=== PATIENT | female | born 1960 | race Caucasian/White ===

== ENCOUNTER 2017-02-23 17:56 | Inpatient (IN) | payer SELFPAY ==
[~2017-02-23] VITALS: Ht 157.4 cm; Wt 59.6 kg
--- NOTE | ~2017-02-23 | CON ---
[place], [place] REPORT OF CONSULTATION NAME: CRISTINE ARREAGA UNIT #: [id number] ROOM: 404 DOCTOR: SUKHI HEAD MD BIRTHDATE: [birth year] DOS: 02/25/2017 PSYCHIATRIC CONSULTATION CHIEF COMPLAINT: "I have been so depressed and anxious." HISTORY OF PRESENT ILLNESS: This is a 56-year-old white female who was admitted due to persistent left-sided chest pain. Workup to date has been negative. The patient openly endorses increased depression and panic attacks. She states that the depression has been ongoing for years and reports that she has had multiple losses in her family that have helped precipitate the ongoing depression. With the depression, she endorses poor sleep with difficulty falling asleep, sleep continuity disturbance, communications designer awakening, anergia, anhedonia, hopeless, helpless feelings, crying spells and inability to cope. She also reports frequent panic attacks that include chest pain, shortness of breath, diaphoresis and a sense of impending doom. She reports having been on Ativan in the past, but has never been on an antidepressant. She has never gone for counseling. PAST MEDICAL HISTORY: Remarkable for GERD and a history of nicotine abuse. MENTAL STATUS: The patient is alert and oriented. Mood is depressed with anxious overtones. She endorses multiple neurovegetative symptoms as well as symptoms of autonomic nervous system dysregulation. There is no khadijah or psychosis noted and memory is intact. DIAGNOSES: Major depression, recurrent and panic disorder. PLAN: I will start her on Ativan 1 mg twice daily as well as Cymbalta 30 mg at bedtime. I would suggest that she follow up in the office for further medication management. I did suggest to her that she start counseling. She is somewhat leery of this, but would reinforce the need for ongoing counseling to help her deal with her multiple losses and try to improve her coping skills. SUKHI HEAD MD CM:CONSTR:REPORT OF CONSULTATION 0954 02/25/17 1017 interface
--- NOTE | ~2017-02-23 | CON ---
[place], [place] REPORT OF CONSULTATION NAME: CRISTINE ARREAGA UNIT #: [id number] ROOM: 404 DOCTOR: MICAELA DENNIS MD BIRTHDATE: [birth year] DOS: 02/24/2017 REASON FOR CONSULTATION: Chest pain. HISTORY OF PRESENT ILLNESS: The patient is a 56-year-old woman who has no previously documented history of heart disease. She does have a history of lung disease and continues to smoke. She denies any history of stroke, high blood pressure, diabetes. She states that for the last 6 days, she has had an aching sensation in her left chest. The pain does not radiate. It is constant and nothing much seems to make it better or worse. She has not noticed any specific relation to exercise or meals. It seemed to be getting worse and she was very anxious about it, so she came to the hospital for assessment. The patient does admit that her left upper extremity does feel numb and tingly and she has had transient visual loss in her left eye within the last few days. She does have occasional palpitations. The patient does suffer from anxiety and does admit that she does have gastroesophageal reflux. PAST MEDICAL HISTORY: Includes 1. Anxiety. 2. Gastroesophageal reflux disease. 3. Tubal ligation. 4. snf and ongoing cigarette abuse. MEDICATIONS: Prior to admission Naproxen 500 mg b.i.d. p.r.n., Chlorzoxazone (Parafon Forte) 500 mg t.i.d. p.r.n. ALLERGIES: The patient lists an allergy to MORPHINE, which caused vomiting. FAMILY HISTORY: Negative for early coronary artery disease. She states that several family members have had cancer including her father who between age 50 and 60. REVIEW OF SYSTEMS: The patient denies fevers, chills, sweats or recent weight change. She did have loss of vision in her left eye transiently a few days ago. She denies nausea or vomiting. She denies focal weakness. She denies hemoptysis or hematemesis. She has had some mild dyspnea. She has noticed some tingling in her fingers, especially on the left hand. She denies change in bowel or bladder habits and denies blood in her stools or urine. She denies any skin rashes. She denies polydipsia, polyuria or heat intolerance. She denies any swelling in her legs or any history of blood clots. The remainder of the review of systems is negative except as noted above. SOCIAL HISTORY: The patient is . She smokes cigarettes, but denies any use of illicit drugs or alcohol. PHYSICAL EXAMINATION: GENERAL: The patient is a slender white female who is awake, alert and [place], [place] REPORT OF CONSULTATION NAME: CRISTINE ARREAGA UNIT #: [id number] ROOM: [facility] DOCTOR: MICAELA DENNIS MD BIRTHDATE: [birth year] oriented. VITAL SIGNS: Pulse is 68 and regular, blood pressure is 102/68. She is afebrile. She weighs 59.6 kg and has a body mass index of 24. HEENT: Normocephalic, atraumatic. Extraocular muscles are intact. Sclerae are clear. Pupils are equal, round and reactive to light. The oral mucosa is moist. Tongue is midline. NECK: Supple. She has no jugular distention. Carotids are full and I heard no bruits. She had no neck or supraclavicular masses and no thyromegaly. LUNGS: Respirations are unlabored. Her chest is clear to auscultation and percussion. She has decreased breath sounds at the bases, but no wheezes or rales. She has no presacral edema. I could not reproduce her chest pain by palpation of her anterior chest wall. CARDIOVASCULAR: Her heart has a regular rhythm. She has a very soft S4 gallop, but no S3 or murmur. The PMI is not displaced. There is no precordial heave, lift or thrill. ABDOMEN: Soft and normally active without masses, organomegaly, bruits or tenderness. Again, I could not reproduce her pain by palpation of her abdomen. EXTREMITIES: Showed no clubbing, cyanosis or edema. Peripheral pulses are palpable in the feet. There are no palpable cords or Homans sign. LABORATORY DATA: I reviewed her electrocardiogram. It shows sinus rhythm with low precordial voltage. No acute ST or T-wave changes are seen. There is evidence for left atrial enlargement. Hemoglobin is 11.9, hematocrit 35.6. There are 10,000 white cells and 322,000 platelets. Sodium is 140, potassium 3.8, BUN 6, creatinine 0.64. Troponin was normal times 3. Total cholesterol is mildly elevated at 216, LDL is 141, HDL is 47, triglycerides are 140. TSH is normal at 1.95. IMPRESSION: 1. Atypical chest pain. 2. No evidence for acute myocardial infarction. 3. Long-term and ongoing cigarette abuse. PLAN: Thus far, the patient shows no objective findings to suggest an acute coronary syndrome. In order to evaluate her further, we will proceed with an exercise myocardial perfusion study. Further recommendations will depend upon the results of the test. We thank the hospitalist physicians for asking our advice regarding her care. [place], [place] REPORT OF CONSULTATION NAME: CRISTINE ARREAGA UNIT #: [id number] ROOM: 404 DOCTOR: MICAELA DENNIS MD BIRTHDATE: [birth year] MICAELA DENNIS MD CM:CONSTR:REPORT OF CONSULTATION 0829 02/24/17 1037 interface
[~2017-02-23 17:56] MED LIST: 'PARAFON FORTE500 M1 PO; AMOXICOT500 MG PO; CATAFLAM50 MG PO; CLINDAMYCIN HC300 MG PO; DIAZEPAM2 MG PO; HYDROCODONE BIT1 T11 PO; K-Dur 20MEQ20 MEQ PO; NAPROSYN500 MG PO; NEXIUM40 MG PO; VICO75300 PO; VICODIN 5/500 505 MG PO
[2017-02-23 18:05] VITALS: BP 140/82
[2017-02-23 18:19] LABS: BASO % 0.4 % (0.0-1.0); EOS # 0.2 10*3/uL (0.0-0.4); EOS % 1.4 % (1.0-4.0); HEMATOCRIT 38.5 % (37.0-47.0); HEMOGLOBIN 13.2 g/dl (12.0-16.0); LYMPH # 4.8 10*3/uL (1.3-4.4); LYMPH % 45.4 % (27.0-41.0); MEAN CELL VOLUME 88.7 fl (81.0-99.0); MEAN CORPUSCULAR HGB 30.4 pg (27.0-31.0); MEAN CORPUSCULAR HGB CONC 34.3 g/dl (33.0-37.0); MEAN PLATELET VOLUME 9.6 fl (9.6-12.3); MONO # 0.6 10*3/uL (0.1-1.0); MONO % 5.8 % (3.0-9.0); NEUT % 46.7 % (47.0-73.0); PLATELET COUNT AUTOMATED 348 10*3/uL (130-400); RED BLOOD COUNT 4.34 10*6/uL (4.10-5.10); RED CELL DISTRI WIDTH 12.8 % (0-14.5); WHITE BLOOD COUNT 10.7 10*3/uL (4.8-10.8)
[2017-02-23 18:28] LABS: ACT PARTIAL THROMBO TIME 23.8 SECONDS (20.8-31.5)
[2017-02-23 18:36] LABS: ALKALINE PHOSPHATASE 118 U/L (45-117); BUN 7 mg/dl (7-24); CHLORIDE 103 mmol/L (98-107); CREATININE 1.04 mg/dL (0.55-1.02); POTASSIUM 3.3 mmol/L (3.5-5.1); SGOT/AST 8 IU/L (3-35); SGPT/ALT 14 U/L (12-78); SODIUM 137 mmol/L (136-145); TOTAL PROTEIN 7.9 gm/dL (6.4-8.2)
[2017-02-23 18:41] LABS: TROPONIN I < 0.015 ng/ml (<0.045)
--- NOTE | 2017-02-23 18:45 | NUR ---
BED ASSIGNED 404/2. PER GOLF COURSE EQUIPMENT OPERATOR, REPORT IS NOT TO BE CALLED UNTIL AFTER SHIFT REPORT.
[2017-02-23 19:18] VITALS: BP 134/86
[2017-02-23 20:00] VITALS: BP 114/56; BP 153/82; BP 154/82; BP 91/48
--- NOTE | 2017-02-23 20:58 | NUR ---
A 56, admitted to , under the services of BEHZAD Carney DO with a diagnosis of CARDIAC CHEST PAIN. Chief complaint is CHEST PAIN. Patient arrived via bed from ER. Monitor applied. Initial assessment completed. Vital signs taken and recorded. BEHZAD CARNEY DO notified of admission to the unit. Orders received. See assessment for past medical history, medications and allergies. Patient and/or family oriented to unit. [address] visitation policy reviewed. Clothing/patient valuable form completed. GENE FIGUEROA
--- NOTE | 2017-02-23 22:20 | NUR ---
PT C/O ANXIETY. CALLED , SPOKE WITH DR. Alana BILLINGS. SHE SAID SHE WOULD PUT AN ORDER IN.
--- NOTE | 2017-02-23 22:40 | NUR ---
ADMINISTERED ATIVAN ORDERED FOR ANXIETY.
[2017-02-24] VITALS: BP 120/73
--- NOTE | 2017-02-24 02:00 | NUR ---
SLEEPING. NO DISTRESS NOTED. CALL LIGHT IN REACH. WILL CONTINUE TO MONITOR.
--- NOTE | 2017-02-24 05:15 | NUR ---
PT C/O PAIN. PRN TYLENOL ORDERED, PER DR BILLINGS PT MAY HAVE TYLENOL WITH SIPS OF WATER.
--- NOTE | 2017-02-24 06:08 | NUR ---
PT RECEIVED TYLENOL FOR MILD CHEST PAIN. RATED 4/10.
--- NOTE | 2017-02-24 06:15 | NUR ---
PT C/O ANXIETY. HAD ONE TIME DOSE OF ATIVAN LAST NIGHT. CALLED AND SPOKE TO DR BILLINGS REGARDING NO ORDERS. SHE STATES SHE JESSICA SPEAK TO DR BENITO AND ADDRESS PT ANXIETY AND POSSIBLE PSYCH CONSULT.
[2017-02-24 06:22] LABS: HEMATOCRIT 35.6 % (37.0-47.0); HEMOGLOBIN 11.9 g/dl (12.0-16.0); MEAN CELL VOLUME 88.6 fl (81.0-99.0); MEAN CORPUSCULAR HGB 29.6 pg (27.0-31.0); MEAN CORPUSCULAR HGB CONC 33.4 g/dl (33.0-37.0); MEAN PLATELET VOLUME 10.3 fl (9.6-12.3); PLATELET COUNT AUTOMATED 322 10*3/uL (130-400); RED BLOOD COUNT 4.02 10*6/uL (4.10-5.10); RED CELL DISTRI WIDTH 12.8 % (0-14.5)
[2017-02-24 06:42] LABS: ALBUMIN 3.5 gm/dl (3.1-4.5); BUN 6 mg/dl (7-24); CHLORIDE 109 mmol/L (98-107); CHOLESTEROL 216 mg/dL (<200); CREATININE 0.64 mg/dL (0.55-1.02); PHOSPHOROUS 3.1 mg/dL (2.5-4.9); POTASSIUM 3.8 mmol/L (3.5-5.1); SGOT/AST 8 IU/L (3-35); SGPT/ALT 16 U/L (12-78); SODIUM 140 mmol/L (136-145)
[2017-02-24 06:50] LABS: ALKALINE PHOSPHATASE 94 U/L (45-117); FREE T4 1.12 ng/dl (0.76-1.46); HDL CHOLESTEROL 47 mg/dl (40-60); LDL CHOLESTEROL 141 mg/dL (9-159); TOTAL PROTEIN 6.6 gm/dL (6.4-8.2); TRIGLYCERIDES 140 mg/dl (<150); VLDL CHOLESTEROL 28 mg/dL (6-40)
[2017-02-24 06:54] LABS: ACT PARTIAL THROMBO TIME 24.4 SECONDS (20.8-31.5)
--- NOTE | 2017-02-24 06:56 | NUR ---
PT RECEIVED ATIVAN FOR ANXIETY.
[2017-02-24 07:06] LABS: PLATELET SUFFICIENCY NORMAL (NORMAL); TOTAL CELLS COUNTED 100 #CELLS
--- NOTE | 2017-02-24 07:37 | NUR ---
DR DENNIS RETURNED PHONE CALL ABOUT CONSULT. SAID TO PROCEED WITH STRESS TEST THIS MORNING ORDERED.
[2017-02-24 08:00] VITALS: BP 102/68
--- NOTE | 2017-02-24 08:00 | NUR ---
PATIENT IS RESTING IN BED. PATIENT DENIES ANY PAIN OR DISCOMFORT THIS MORNING. PATIENT WAS NPO SINCE MIDNIGHT FOR A STRESS TEST. PATIENT DENIES ANY EPISODES OF DIZZINESS AND WAS ABLE TO SLEEP THROUGHOUT THE NIGHT. PATIENT HAS A STUDENT NURSE FOR THIS MORNING THAT WILL BE DOING MEDICATIONS AND CHARTING. WILL CONTINUE TO MONITOR PATIENT. CALL LIGHT IS WITHIN REACH.
--- NOTE | 2017-02-24 08:10 | NUR ---
PT ESCORTED OFF THE FLOOR FOR STRESS TEST.
--- NOTE | 2017-02-24 08:15 | NUR ---
PATIENT IS OFF THE FLOOR FOR A STRESS TEST.
--- NOTE | 2017-02-24 09:00 | NUR ---
Oyster Washer in to talk to patient. Patient states lives at home with . There are few steps in the home. Physician: none at present [facility]acy: [facility] [place] [facility]: none Patient's level of ADLs: INDEPENDENT Patient has working utilities: all working DME: none Follow-up physician's appointment after d/c: will be made by hospitalist nurse director upon discharge Does patient want to access PORTAL?: no Discharge plan discussed with patient, patient lives at home with hsuband is independent in adls and ambulation, patient was having testing done, and answered the questions. he also stated that patient didn't have any insurance, educated him on someone from [employer] will be sending them a paper to fill out for help with the hospital stay. he also stated that they may need help with paying for medications, educated them that house pharmacy was able to supply patient medication. no other needs at this time. CHARLEEN RECINOS
--- NOTE | 2017-02-24 09:15 | NUR ---
DR. DENNIS EXAMINED PATIENT ON THE FLOOR AND SWITCHED STRESS TEST TO EXERCISE CARDIOLITE. PT HAD RECEIVED ATIVAN EARLIER THIS AM SO SWITCHED BACK TO LEXISCAN. RESTING EKG NSR WITH A RESTING HR OF 69 WITH BP OF 112/70. LUNGS CLEAR WITH SPO2 OF 96% ON ROOM AIR. PT COMPLETED A 1:00 LEXISCAN PROTOCOL RECEIVING LEXISCAN 0.4 MG IV OVER 10 SECONDS. HAD NO CHEST PAIN OR ANY EKG CHANGES. DID C/O WARM, "TENSE AND WORN OUT" THAT SUBSIDED IN RECOVERY. HAD A PEAK HR OF 116 WITH BP OF 102/68. LAST RECOVERY HR OF 88 WITH BP OF 100/64. AWAITING SCANNING IN STABLE CONDITION.
--- NOTE | 2017-02-24 11:05 | NUR ---
SPOKE WITH DR. VALERO REGARDING PT BACK FROM STRESS TEST HE WILL ORDER A DIET.
[2017-02-24 12:00] VITALS: BP 110/68
--- NOTE | 2017-02-24 12:30 | NUR ---
PATIENT IS RESTING IN BED WITH FAMILY AT THE BEDSIDE. PATIENT REPORTS FEELING A LOSS OF APPETITIE, BUT DENIES ANY N/V/D. PATIENT HASN'T HAD ANY EPISODES OF CHEST PAIN THROUGHOUT THE DAY. PATIENT IS MONITORED. HOB ELEVATED. SKIN IS W/P/D. VITALS HAVE BEEN WNL. SEE SHIFT ASSESSMENT. CALL LIGHT IS WITHIN REACH.
--- NOTE | 2017-02-24 15:55 | NUR ---
PATIENT GIVEN IV ZOFRAN PER PT REQUEST FOR NAUSEA, BUT NO EPISODES OF EMESIS. WILL CONTINUE TO MONITOR AND REASSESS.
[2017-02-24 16:00] VITALS: BP 117/76
--- NOTE | 2017-02-24 16:55 | NUR ---
PATIENT VERBALIZES NO LONGER HAVING NAUSEA AND FEELING A RELIEF OF SYMPTOMS. PATIENT IS EATING DINNER AND TOLERATING IT WELL.
--- NOTE | 2017-02-24 18:28 | NUR ---
PATIENT IS RESTING COMFORTABLY IN BED. PATIENT HAS BEEN PASSING NEURO CHECKS WITHOUT ANY ISSUES. PATIENT VERBALIZES FEELING TIRED, BUT HAS BEEN FEELING BETTER TODAY AND HASN'T HAD ANYMORE EPISODES OF CHEST PAIN THROUGHOUT THE SHIFT. PATIENT DENIES ANY N/V/D AT THIS TIME. CALL LIGHT SYSTEM REINFORCED. SEE SHIFT ASSESSMENT.
[2017-02-24 20:00] VITALS: BP 144/63
--- NOTE | 2017-02-24 20:30 | NUR ---
DR BILLINGS UP ON FLOOR. SPOKE TO HER ABOUT PT C/O ANXIETY. ORDER RECEIVED
--- NOTE | 2017-02-24 21:34 | NUR ---
PT PRESCRIBED PO ATIVAN FOR ANXIETY. GIVEN AT [id number].
--- NOTE | 2017-02-24 21:55 | NUR ---
CALLED AND SPOE TO DR BENITO REGARDING PT REQUEST FOR NICOTROL INHALER, HE IS GOING TO PUT ORDER IN
--- NOTE | 2017-02-24 22:24 | NUR ---
PT RECEIVED RESTORIL TO AID WITH SLEEP. PT ALSO RECEIVED A NICOTROL INHALER.
--- NOTE | 2017-02-24 23:30 | NUR ---
PT IS RESTING COMFORTABLY.
[2017-02-25] VITALS: BP 99/67
--- NOTE | 2017-02-25 02:00 | NUR ---
SLEEPING. RESP EASY AND NONLABORED. NO DISTRESS NOTED. CALL LIGHT IN REACH. WILL CONTINUE TO MONITOR.
[2017-02-25 04:00] VITALS: BP 102/62
--- NOTE | 2017-02-25 06:42 | NUR ---
DR HEAD MADE AWARE OF CONSULT. HE SAID HE WILL SEE HER TODAY
[2017-02-25] MEDS ORDERED: VITAMIN D5000 UNI1 PO (06:56)
[2017-02-25] MEDS ORDERED: B12,B-12,B 12500 MC1 PO (06:56)
[2017-02-25 08:00] VITALS: BP 110/60
--- NOTE | 2017-02-25 08:10 | NUR ---
PATIENT IS RESTING IN BED. PATIENT STILL HAS SOME NUMBNESS IN THE LEFT ARM AND VISION LOSS IN THE LEFT EYE. PATIENT VERBALIZES FEELING A LITTLE ANXIOUS THIS MORNING. PATIENT DENIES ANY PAIN OR DISCOMFORT. FAMILY IS AT THE BEDSIDE. HOB IS ELEVATED. XENIA CHAPARRO APPLIED. NO FURTHER REQUESTS AT THIS TIME. SEE ASSESSMENT.
--- NOTE | 2017-02-25 08:15 | NUR ---
STUDENT NURSE ON THE FLOOR. THEY WILL BE DOING DOCUMENTATION AND MED ADMINISTRATION. WILL CONTINUE TO MONITOR AND ASSIST.
--- NOTE | 2017-02-25 08:16 | NUR ---
SPOKE WITH DR. CROSS REGARDING PT REQUESTING ATIVAN. SHE WAS LOOKING INTO IT.
--- NOTE | 2017-02-25 08:55 | NUR ---
PATIENT WAS GIVEN ATARAX PER PATIENT REQUEST FOR ANXIETY. WILL CONTINUE TO MONITOR PATIENT AND REASSESS.
--- NOTE | 2017-02-25 09:00 | NUR ---
case management visits with patient, patient denies any home needs at this time
--- NOTE | 2017-02-25 09:44 | NUR ---
DR. HEAD INTO SEE PT.
[2017-02-25] MEDS ORDERED: DULOXETINE HCL30 MG PO (10:12)
--- NOTE | 2017-02-25 11:08 | NUR ---
Discharge instructions reviewed with patient/family. Patient receptive and verbalizes understanding. Follow-up care WITH PCP IN 2 WEEKS arranged. Written instructions given to patient. PATIENT AMBULATED OFF OF FLOOR WITH FAMILY MEMBER. KINGA MCLEOD
== END 2017-02-25 11:08 | disposition home or self-care (01) | DRG 193 ==
LOC: ED 17:56 → 4E 18:39 → EDHOLD 18:39 → 4E 19:31
PROVIDERS: Emergency Medicine; Internal Medicine; ADMIT Internal Medicine
PROC: 3E073KZ Introduction of Other Diagnostic Substance into Coronary Artery, Percutaneous Approach (ICD-10-PCS; principal; 2017-02-24)
PROC: 4A02XM4 Measurement of Cardiac Total Activity, External Approach (ICD-10-PCS; 2017-02-24)
DX: R09.1 Pleurisy (principal); N17.0 Acute kidney failure with tubular necrosis; G45.9 Transient cerebral ischemic attack, unspecified; G45.3 Amaurosis fugax; F33.9 Major depressive disorder, recurrent, unspecified; E87.8 Other disorders of electrolyte and fluid balance, not elsewhere classified; F41.0 Panic disorder [episodic paroxysmal anxiety]; E87.6 Hypokalemia; E53.8 Deficiency of other specified B group vitamins; R07.89 Other chest pain; K21.9 Gastro-esophageal reflux disease without esophagitis; R51 Headache; R03.0 Elevated blood-pressure reading, without diagnosis of hypertension; F17.200 Nicotine dependence, unspecified, uncomplicated; Z71.6 Tobacco abuse counseling; Z98.51 Tubal ligation status; Z82.49 Family history of ischemic heart disease and other diseases of the circulatory system; Z80.9 Family history of malignant neoplasm, unspecified

== ENCOUNTER 2018-07-31 22:00 | Emergency (ER) | payer SELFPAY ==
[~2018-07-31] VITALS: Ht 160 cm; Wt 53.1 kg
[~2018-07-31 22:00] MED LIST changes: +B12,B-12,B 12500 MC1 PO; +DULOXETINE HCL30 MG PO; +VITAMIN D5000 UNI1 PO
[2018-07-31 22:46] LABS: HEMATOCRIT 39.6 % (37.0-47.0); HEMOGLOBIN 13.6 g/dl (12.0-16.0); MEAN CELL VOLUME 88.6 fl (81.0-99.0); MEAN CORPUSCULAR HGB 30.4 pg (27.0-31.0); MEAN CORPUSCULAR HGB CONC 34.3 g/dl (33.0-37.0); MEAN PLATELET VOLUME 9.1 fl (9.6-12.3); PLATELET COUNT AUTOMATED 375 10*3/uL (130-400); RED BLOOD COUNT 4.47 10*6/uL (4.10-5.10); RED CELL DISTRI WIDTH 12.4 % (0-14.5)
[2018-07-31 23:01] LABS: ALBUMIN 4.1 gm/dl (3.1-4.5); ALKALINE PHOSPHATASE 111 U/L (45-117); BUN 10 mg/dl (7-24); CHLORIDE 103 mmol/L (98-107); CREATININE 0.77 mg/dL (0.55-1.02); LIPASE 155 U/L (73-393); POTASSIUM 3.3 mmol/L (3.5-5.1); SGOT/AST 11 IU/L (3-35); SGPT/ALT 18 U/L (12-78); SODIUM 135 mmol/L (136-145); TOTAL PROTEIN 7.9 gm/dL (6.4-8.2)
[2018-07-31] MEDS ORDERED: ATIVAN1 MG PO (23:03)
[2018-07-31 23:08] LABS: BASOPHILS 1 % (0-1); PLATELET SUFFICIENCY NORMAL (NORMAL); TOTAL CELLS COUNTED 100 #CELLS
[2018-07-31 23:27] LABS: BILIRUBIN NEGATIVE (NEGATIVE); BLOOD 2+ (NEGATIVE); CLARITY CLEAR (CLEAR); COLOR YELLOW (YELLOW); GLUCOSE NEGATIVE (NEGATIVE); KETONE NEGATIVE (NEGATIVE); LEUKO ESTERASE TRACE (NEGATIVE); NITRITE NEGATIVE (NEGATIVE); SPECIFIC GRAVITY <= 1.005 (1.005-1.030); UROBILINOGEN 0.2 E.U./dl (0.2-1.0)
[2018-07-31 23:36] LABS: EPITHELIAL CELLS 15-20
[2018-08-01] MEDS ORDERED: CEPHALEXIN500 M1 PO (01:27)
== END 2018-08-01 01:55 | disposition home or self-care (01) ==
LOC: ED 22:00
PROVIDERS: Nurse Practitioner Family
DX: N39.0 Urinary tract infection, site not specified (principal); D27.0 Benign neoplasm of right ovary; K21.9 Gastro-esophageal reflux disease without esophagitis; Z88.6 Allergy status to analgesic agent; Z87.891 Personal history of nicotine dependence

== ENCOUNTER 2019-12-07 20:31 | Observation (INO) | payer SELFPAY ==
[~2019-12-07] VITALS: Ht 157.5 cm; Wt 55.5 kg
[~2019-12-07 20:31] MED LIST changes: +ATIVAN1 MG PO; +CEPHALEXIN500 M1 PO
[2019-12-07 20:38] VITALS: BP 165/73
[2019-12-07 21:00] VITALS: BP 142/72
[2019-12-07 21:00] LABS: BASO # 0.1 10*3/uL (0.0-0.1); BASO % 0.4 % (0.0-1.0); EOS # 0.1 10*3/uL (0.0-0.4); EOS % 0.6 % (1.0-4.0); HEMATOCRIT 38.5 % (37.0-47.0); LYMPH # 4.9 10*3/uL (1.3-4.4); LYMPH % 42.5 % (27.0-41.0); MEAN CELL VOLUME 85.2 fl (81.0-99.0); MEAN PLATELET VOLUME 9.4 fl (9.6-12.3); MONO # 0.8 10*3/uL (0.1-1.0); MONO % 7.1 % (3.0-9.0); NEUT # 5.6 10*3/uL (2.3-7.9); NEUT % 49.1 % (47.0-73.0); PLATELET COUNT AUTOMATED 359 10*3/uL (130-400); RED BLOOD COUNT 4.52 10*6/uL (4.10-5.10); RED CELL DISTRI WIDTH 12.4 % (0-14.5); WHITE BLOOD COUNT 11.4 10*3/uL (4.8-10.8)
[2019-12-07 21:11] LABS: ACT PARTIAL THROMBO TIME 26.1 SECONDS (20.0-32.1)
[2019-12-07 21:17] LABS: ALBUMIN 4.4 gm/dl (3.1-4.5); ALKALINE PHOSPHATASE 103 U/L (45-117); BUN 7 mg/dl (7-24); CHLORIDE 101 mmol/L (98-107); CREATININE 0.77 mg/dL (0.55-1.02); SGOT/AST 14 IU/L (3-35); SGPT/ALT 19 U/L (12-78); SODIUM 137 mmol/L (136-145)
[2019-12-07 21:30] LABS: TROPONIN I < 0.015 ng/ml (<0.045)
[2019-12-07 21:53] VITALS: BP 122/70
[2019-12-07 22:40] VITALS: BP 136/73
[2019-12-08 06:36] LABS: HEMATOCRIT 35.7 % (37.0-47.0); MEAN CELL VOLUME 86.7 fl (81.0-99.0); MEAN CORPUSCULAR HGB 29.1 pg (27.0-31.0); MEAN CORPUSCULAR HGB CONC 33.6 g/dl (33.0-37.0); MEAN PLATELET VOLUME 9.5 fl (9.6-12.3); PLATELET COUNT AUTOMATED 316 10*3/uL (130-400); RED BLOOD COUNT 4.12 10*6/uL (4.10-5.10); RED CELL DISTRI WIDTH 12.4 % (0-14.5); WHITE BLOOD COUNT 10.7 10*3/uL (4.8-10.8)
[2019-12-08 06:55] LABS: BUN 6 mg/dl (7-24); CHLORIDE 103 mmol/L (98-107); CHOLESTEROL 238 mg/dL (<200); CREATININE 0.62 mg/dL (0.55-1.02); POTASSIUM 3.6 mmol/L (3.5-5.1); SODIUM 136 mmol/L (136-145); TRIGLYCERIDES 124 mg/dl (<150); VLDL CHOLESTEROL 25 mg/dL (6-40)
[2019-12-08 07:05] LABS: HDL CHOLESTEROL 54 mg/dl (40-60); LDL CHOLESTEROL 159 mg/dL (9-159)
[2019-12-08 07:18] LABS: TOTAL CELLS COUNTED 100 #CELLS
[2019-12-08 07:19] LABS: PLATELET SUFFICIENCY NORMAL (NORMAL)
[2019-12-08 08:00] VITALS: BP 107/67
[2019-12-08 12:00] VITALS: BP 113/84
[2019-12-08 16:00] VITALS: BP 107/66
== END 2019-12-08 17:41 | disposition home or self-care (01) ==
LOC: ED 20:31 → EDHOLD 21:32 → 4E 21:53
PROVIDERS: Emergency Medicine; Student in an Organized Health Care Education/Training Program; ADMIT Internal Medicine
DX: R07.89 Other chest pain (principal); D72.829 Elevated white blood cell count, unspecified; E87.6 Hypokalemia; R73.9 Hyperglycemia, unspecified; K21.9 Gastro-esophageal reflux disease without esophagitis; F41.9 Anxiety disorder, unspecified; E53.8 Deficiency of other specified B group vitamins; E55.9 Vitamin D deficiency, unspecified; F17.210 Nicotine dependence, cigarettes, uncomplicated

== ENCOUNTER 2020-02-07 16:24 | Emergency (ER) | payer SELFPAY ==
[~2020-02-07] VITALS: Ht 157.4 cm; Wt 54.4 kg
[2020-02-07 17:20] LABS: HEMATOCRIT 39.7 % (37.0-47.0); MEAN CELL VOLUME 87.3 fl (81.0-99.0); MEAN CORPUSCULAR HGB 29.2 pg (27.0-31.0); MEAN CORPUSCULAR HGB CONC 33.5 g/dl (33.0-37.0); MEAN PLATELET VOLUME 9.9 fl (9.6-12.3); PLATELET COUNT AUTOMATED 331 10*3/uL (130-400); RED BLOOD COUNT 4.55 10*6/uL (4.10-5.10); RED CELL DISTRI WIDTH 12.7 % (0-14.5)
[2020-02-07 17:30] LABS: ACT PARTIAL THROMBO TIME 23.3 SECONDS (20.0-32.1); INTERNATIONAL NORM RATIO 0.9 (2.0-3.5)
[2020-02-07 17:44] LABS: TOTAL CELLS COUNTED 100 #CELLS
[2020-02-07 17:45] LABS: BURR CELLS MODERATE; OVALOCYTES FEW
[2020-02-07 17:49] LABS: PLATELET SUFFICIENCY NORMAL (NORMAL)
[2020-02-07 18:05] LABS: ALBUMIN 4.2 gm/dl (3.1-4.5); ALKALINE PHOSPHATASE 99 U/L (45-117); BUN 7 mg/dl (7-24); CHLORIDE 102 mmol/L (98-107); CREATININE 0.67 mg/dL (0.55-1.02); LIPASE 143 U/L (73-393); POTASSIUM 3.5 mmol/L (3.5-5.1); SGOT/AST 13 IU/L (3-35); SGPT/ALT 18 U/L (12-78); SODIUM 132 mmol/L (136-145); TOTAL PROTEIN 7.9 gm/dL (6.4-8.2); TROPONIN I < 0.015 ng/ml (<0.045)
== END 2020-02-07 18:51 | disposition home or self-care (01) ==
LOC: ED 16:24
PROVIDERS: Nurse Practitioner Family
DX: J06.9 Acute upper respiratory infection, unspecified (principal); K21.9 Gastro-esophageal reflux disease without esophagitis; Z88.8 Allergy status to other drugs, medicaments and biological substances; Z79.899 Other long term (current) drug therapy

== ENCOUNTER → 2020-07-10 | Outpatient (CLI) | payer OTHER | END | disposition home or self-care (01) | LOC: US 11:22 | PROVIDERS: ATTEND Family Medicine | DX: N60.02 Solitary cyst of left breast (principal) ==

== ENCOUNTER → 2020-07-23 | Outpatient (CLI) | payer OTHER | END | disposition home or self-care (01) | LOC: CARD 08:10 | PROVIDERS: ATTEND Family Medicine | DX: I71.2 Thoracic aortic aneurysm, without rupture (principal) ==

== ENCOUNTER 2020-11-18 14:02 | Emergency (ER) | payer OTHER ==
[~2020-11-18] VITALS: Ht 157.4 cm; Wt 49.9 kg
[2020-11-18 15:05] LABS: BASO % 0.4 % (0.0-1.0)
[2020-11-18 15:09] LABS: EOS # 0.1 10*3/uL (0.0-0.4); EOS % 0.6 % (1.0-4.0); HEMATOCRIT 41.7 % (37.0-47.0); LYMPH # 3.1 10*3/uL (1.3-4.4); LYMPH % 28.5 % (27.0-41.0); MEAN CELL VOLUME 89.1 fl (81.0-99.0); MEAN CORPUSCULAR HGB 29.3 pg (27.0-31.0); MEAN CORPUSCULAR HGB CONC 32.9 g/dl (33.0-37.0); MEAN PLATELET VOLUME 8.9 fl (9.6-12.3); MONO # 0.6 10*3/uL (0.1-1.0); MONO % 5.1 % (3.0-9.0); PLATELET COUNT AUTOMATED 402 10*3/uL (130-400); RED BLOOD COUNT 4.68 10*6/uL (4.10-5.10); RED CELL DISTRI WIDTH 12.1 % (0-14.5); WHITE BLOOD COUNT 10.8 10*3/uL (4.8-10.8)
[2020-11-18 15:25] LABS: ALBUMIN 4.8 gm/dl (3.1-4.5); ALKALINE PHOSPHATASE 116 U/L (45-117); BUN 9 mg/dl (7-24); CHLORIDE 101 mmol/L (98-107); CREATININE 0.71 mg/dL (0.55-1.02); SGOT/AST 12 IU/L (3-35); SGPT/ALT 17 U/L (12-78); SODIUM 135 mmol/L (136-145); TOTAL PROTEIN 8.5 gm/dL (6.4-8.2)
[2020-11-18 15:31] LABS: TROPONIN I < 0.015 ng/ml (<0.045)
[2020-11-18 16:06] LABS: BILIRUBIN Negative (Negative); BLOOD Trace-Lysed (Negative); CLARITY Clear (Clear); COLOR Yellow (Yellow); GLUCOSE Negative (Negative); KETONE Negative (Negative); LEUKO ESTERASE Negative (Negative); NITRITE Negative (Negative); PH 7.5 (4.5-8.0); UROBILINOGEN 0.2 E.U./dl (0.0-1.0)
[2020-11-18 16:13] LABS: BACTERIA TRACE; EPITHELIAL CELLS 0-2; RBC 21-30 rbc/hpf (0-2); WBC 0-2 wbc/hpf (0-5)
== END 2020-11-18 17:59 | disposition home or self-care (01) ==
LOC: ED 14:02
PROVIDERS: Physician Assistant
DX: F41.9 Anxiety disorder, unspecified (principal); R10.13 Epigastric pain; F17.200 Nicotine dependence, unspecified, uncomplicated; Z88.5 Allergy status to narcotic agent; Z79.899 Other long term (current) drug therapy; Z98.51 Tubal ligation status

== ENCOUNTER 2021-03-25 15:58 | Emergency (ER) | payer OTHER | END 2021-03-25 19:14 | disposition left against medical advice (07) | LOC: ED 15:58 | DX: R10.30 Lower abdominal pain, unspecified (principal); Z53.21 Procedure and treatment not carried out due to patient leaving prior to being seen by health care provider ==

== ENCOUNTER 2021-07-03 14:07 | Emergency (ER) | payer OTHER ==
[~2021-07-03] VITALS: Wt 46.3 kg
[2021-07-03 14:22] LABS: BASO # 0.1 10*3/uL (0.0-0.1); BASO % 0.5 % (0.0-1.0); EOS # 0.2 10*3/uL (0.0-0.4); EOS % 1.4 % (1.0-4.0); LYMPH # 3.4 10*3/uL (1.3-4.4); MEAN CELL VOLUME 87.1 fl (81.0-99.0); MEAN CORPUSCULAR HGB 29.7 pg (27.0-31.0); MEAN CORPUSCULAR HGB CONC 34.1 g/dl (33.0-37.0); MEAN PLATELET VOLUME 8.8 fl (9.6-12.3); MONO # 0.8 10*3/uL (0.1-1.0); MONO % 7.1 % (3.0-9.0); NEUT # 6.2 10*3/uL (2.3-7.9); NEUT % 58.7 % (47.0-73.0); PLATELET COUNT AUTOMATED 393 10*3/uL (130-400); RED BLOOD COUNT 4.48 10*6/uL (4.10-5.10); RED CELL DISTRI WIDTH 12.6 % (0-14.5); WHITE BLOOD COUNT 10.5 10*3/uL (4.8-10.8)
[2021-07-03 14:37] LABS: ALKALINE PHOSPHATASE 82 U/L (45-117); BUN 10 mg/dl (7-24); CHLORIDE 100 mmol/L (98-107); CREATININE 0.86 mg/dL (0.55-1.02); POTASSIUM 3.7 mmol/L (3.5-5.1); SGOT/AST 12 IU/L (3-35); SGPT/ALT 17 U/L (12-78); SODIUM 137 mmol/L (136-145); TOTAL PROTEIN 8.2 gm/dL (6.4-8.2)
[2021-07-03 14:53] LABS: ACT PARTIAL THROMBO TIME 25.4 SECONDS (20.0-32.1)
[2021-07-09] MEDS ORDERED: LISINOPRIL5 MG PO (13:59)
[2021-07-09] MEDS ORDERED: METOPROLOL SUCC25 M2 PO (14:00)
[2021-07-09] MEDS ORDERED: PANTOPRAZOLE SO40 MG PO (14:01)
== END 2021-07-03 17:10 | disposition home or self-care (01) ==
LOC: ED 14:07
PROVIDERS: Family Medicine
DX: R07.9 Chest pain, unspecified (principal); K21.9 Gastro-esophageal reflux disease without esophagitis; Z88.8 Allergy status to other drugs, medicaments and biological substances; Z98.51 Tubal ligation status; Z87.891 Personal history of nicotine dependence

== ENCOUNTER → 2021-07-08 | Outpatient (CLI) | payer OTHER ==
[~2021-07-08] MED LIST changes: +CARAFATE1 G1 PO; +LISINOPRIL5 MG PO; +METOPROLOL SUCC25 M2 PO; +PANTOPRAZOLE SO40 MG PO
== END | disposition home or self-care (01) ==
LOC: RAD 14:51
PROVIDERS: ATTEND Family Medicine
DX: M54.2 Cervicalgia (principal)

== ENCOUNTER → 2021-07-15 | Day surgery (SDC) | payer OTHER ==
[~2021-07-15] VITALS: Ht 157.4 cm; Wt 47.6 kg
[2021-07-15 08:59] VITALS: BP 116/72
[2021-07-15 09:22] VITALS: BP 77/68
[2021-07-15 09:35] VITALS: BP 92/57
[2021-07-15 09:52] VITALS: BP 104/62
== END | disposition home or self-care (01) ==
LOC: SDC 07-11 10:15
PROVIDERS: ATTEND Surgery
DX: R10.13 Epigastric pain (principal); K25.9 Gastric ulcer, unspecified as acute or chronic, without hemorrhage or perforation; K29.50 Unspecified chronic gastritis without bleeding; K21.9 Gastro-esophageal reflux disease without esophagitis; F41.9 Anxiety disorder, unspecified; F32.9 Major depressive disorder, single episode, unspecified; F17.210 Nicotine dependence, cigarettes, uncomplicated; I25.10 Atherosclerotic heart disease of native coronary artery without angina pectoris; Z88.5 Allergy status to narcotic agent; Z79.899 Other long term (current) drug therapy; Z20.822 Contact with and (suspected) exposure to COVID-19

== ENCOUNTER → 2021-09-25 | Outpatient (CLI) | payer OTHER | END | disposition home or self-care (01) | LOC: COVID19 10:02 | PROVIDERS: ATTEND Internal Medicine | DX: Z11.52 Encounter for screening for COVID-19 (principal); Z20.822 Contact with and (suspected) exposure to COVID-19 ==

== ENCOUNTER → 2021-10-08 | Outpatient (CLI) | payer OTHER | END | disposition home or self-care (01) | LOC: MAMMO 15:25 | PROVIDERS: ATTEND Family Medicine | DX: Z12.31 Encounter for screening mammogram for malignant neoplasm of breast (principal) ==

== ENCOUNTER 2022-03-28 22:31 | Emergency (ER) | payer OTHER ==
[~2022-03-28] VITALS: Ht 157.4 cm; Wt 47.8 kg
[2022-03-28 22:54] LABS: HEMATOCRIT 35.6 % (37.0-47.0); MEAN CELL VOLUME 87.3 fl (81.0-99.0); MEAN CORPUSCULAR HGB 29.9 pg (27.0-31.0); MEAN CORPUSCULAR HGB CONC 34.3 g/dl (33.0-37.0); MEAN PLATELET VOLUME 8.7 fl (9.6-12.3); PLATELET COUNT AUTOMATED 367 10*3/uL (130-400); RED BLOOD COUNT 4.08 10*6/uL (4.10-5.10); RED CELL DISTRI WIDTH 12.1 % (0-14.5); WHITE BLOOD COUNT 10.3 10*3/uL (4.8-10.8)
[2022-03-28 22:56] LABS: MANUAL DIFF REFLEX YES
[2022-03-28 23:06] LABS: ACT PARTIAL THROMBO TIME 26.2 SECONDS (20.0-32.1); INTERNATIONAL NORM RATIO 0.9 (2.0-3.5)
[2022-03-28 23:11] LABS: ALKALINE PHOSPHATASE 93 U/L (46-116); BUN 8 mg/dl (9-23); CHLORIDE 97 mmol/L (98-107); CREATININE 0.73 mg/dL (0.55-1.02); SGPT/ALT 7 U/L (10-49); SODIUM 135 mmol/L (136-145); TOTAL PROTEIN 7.5 gm/dL (6.0-8.0)
[2022-03-28 23:14] LABS: BASOPHILS 1 % (0-1); BURR CELLS FEW; PLATELET SUFFICIENCY NORMAL (NORMAL); TOTAL CELLS COUNTED 100 #CELLS
[2022-03-28 23:15] LABS: OVALOCYTES FEW
== END 2022-03-29 03:13 | disposition home or self-care (01) ==
LOC: ED 22:31
PROVIDERS: Internal Medicine
DX: R07.9 Chest pain, unspecified (principal); E87.6 Hypokalemia; K21.9 Gastro-esophageal reflux disease without esophagitis; Z88.8 Allergy status to other drugs, medicaments and biological substances; Z79.899 Other long term (current) drug therapy; Z98.51 Tubal ligation status; Z87.891 Personal history of nicotine dependence

== ENCOUNTER 2022-09-21 16:30 | Emergency (ER) | payer SELFPAY ==
[~2022-09-21] VITALS: Ht 157.4 cm; Wt 46.7 kg
== END 2022-09-21 17:34 | disposition left against medical advice (07) ==
LOC: ED 16:30
DX: R10.11 Right upper quadrant pain (principal); R10.13 Epigastric pain; F17.200 Nicotine dependence, unspecified, uncomplicated; Z88.5 Allergy status to narcotic agent; Z79.899 Other long term (current) drug therapy; Z98.51 Tubal ligation status

== ENCOUNTER → 2024-03-15 | Outpatient (CLI) | payer OTHER | END | disposition home or self-care (01) | LOC: LAB 14:25 | PROVIDERS: ATTEND Family Medicine | DX: E87.1 Hypo-osmolality and hyponatremia (principal) ==

== ENCOUNTER → 2024-05-25 | Outpatient (CLI) | payer BC ==
[2024-05-25 13:21] LABS: CHLORIDE 99 mmol/L (98-107); CHOLESTEROL 263 mg/dL (<200); LDL CHOLESTEROL 166 mg/dL (9-159); POTASSIUM 4.3 mmol/L (3.4-5.1); SGPT/ALT 9 U/L (5-49); TOTAL PROTEIN 7.8 gm/dL (6.0-8.0); TRIGLYCERIDES 168 mg/dl (<150)
[2024-05-25 13:25] LABS: ALKALINE PHOSPHATASE 97 U/L (46-116); BUN < 5 mg/dl (9-23)
== END | disposition home or self-care (01) ==
LOC: LAB 12:26
PROVIDERS: Student in an Organized Health Care Education/Training Program; ATTEND Family Medicine
DX: E78.5 Hyperlipidemia, unspecified (principal); E87.1 Hypo-osmolality and hyponatremia

== ENCOUNTER → 2024-06-27 | Day surgery (SDC) | payer BC ==
[~2024-06-27] VITALS: Ht 157.4 cm; Wt 46.7 kg
[~2024-06-27] MED LIST changes: +Lactated Ringer's Solution 1,000 ML IV ONE; +Lactated Ringer's Solution 1,000 ML IV SCH; +Lidocaine Hydrochloride 5 ML VIAL IV ONE; +PROPOFOL 200 MG/20 ML VIAL IV ONE; +Phenylephrine Hydrochloride 1 MG/10 ML SYRINGE IV ONE; +ePHEDrine Sulfate 25 MG/5 ML SYRINGE IV ONE
[2024-06-27 09:21] VITALS: BP 117/75
[2024-06-27 09:36] VITALS: BP 86/52
[2024-06-27 09:51] VITALS: BP 98/64
[2024-06-27 10:06] VITALS: BP 110/75
== END | disposition home or self-care (01) ==
LOC: SDC 06-24 10:15
PROVIDERS: ATTEND Surgery
DX: Z12.11 Encounter for screening for malignant neoplasm of colon (principal); D12.3 Benign neoplasm of transverse colon; D12.5 Benign neoplasm of sigmoid colon; K63.5 Polyp of colon; K64.8 Other hemorrhoids; K57.30 Diverticulosis of large intestine without perforation or abscess without bleeding; K21.9 Gastro-esophageal reflux disease without esophagitis; I10 Essential (primary) hypertension; F41.9 Anxiety disorder, unspecified; F32.A Depression, unspecified; F17.210 Nicotine dependence, cigarettes, uncomplicated; F15.90 Other stimulant use, unspecified, uncomplicated; Z98.51 Tubal ligation status; Z88.5 Allergy status to narcotic agent; Z98.890 Other specified postprocedural states; Z79.899 Other long term (current) drug therapy; Z83.3 Family history of diabetes mellitus

== ENCOUNTER → 2024-08-10 | Outpatient (CLI) | payer BC ==
[~2024-08-10] MED LIST changes: -Lactated Ringer's Solution 1,000 ML IV ONE; -Lactated Ringer's Solution 1,000 ML IV SCH; -Lidocaine Hydrochloride 5 ML VIAL IV ONE; -PROPOFOL 200 MG/20 ML VIAL IV ONE; -Phenylephrine Hydrochloride 1 MG/10 ML SYRINGE IV ONE; -ePHEDrine Sulfate 25 MG/5 ML SYRINGE IV ONE
== END | disposition home or self-care (01) ==
LOC: CT 13:00
PROVIDERS: ATTEND Family Medicine
DX: Z12.2 Encounter for screening for malignant neoplasm of respiratory organs (principal); F17.210 Nicotine dependence, cigarettes, uncomplicated; I25.10 Atherosclerotic heart disease of native coronary artery without angina pectoris; J43.9 Emphysema, unspecified

== ENCOUNTER 2025-03-27 17:15 | Emergency (ER) | payer BC ==
[~2025-03-27] VITALS: Ht 157.4 cm; Wt 48.5 kg
[2025-03-27] MEDS ORDERED: Ondansetron Hydrochloride 4 MG/2 ML VIAL IV ONE (18:30)
[2025-03-27 18:38] LABS: BASO # 0.1 10*3/uL (0.0-0.1); BASO % 0.6 % (0.0-1.0); EOS # 0.1 10*3/uL (0.0-0.4); EOS % 1.2 % (1.0-4.0); MEAN CELL VOLUME 87.1 fl (81.0-99.0); MEAN CORPUSCULAR HGB 29.6 pg (27.0-31.0); MEAN PLATELET VOLUME 8.5 fl (9.6-12.3); MONO # 0.6 10*3/uL (0.1-1.0); MONO % 6.8 % (3.0-9.0); NEUT # 5.4 10*3/uL (2.3-7.9); NEUT % 60.1 % (47.0-73.0); NUCLEATED RED BLOOD CELL 0.0 % (0.0-0.0); NUCLEATED RED BLOOD CELL 0.0 10*3/uL (0.0-0.0); PLATELET COUNT AUTOMATED 323 10*3/uL (130-400); RED CELL DISTRI WIDTH 13.0 % (0-14.5)
[2025-03-27] MEDS ORDERED: SODIUM CHLORIDE 0.9% 1,000 ML IV ONE (18:45)
[2025-03-27 19:27] LABS: BUN 9 mg/dl (9-23)
[2025-03-27 19:28] LABS: B-hCG (QUALITATIVE) NEGATIVE (NEGATIVE)
[2025-03-27] MEDS ORDERED: SODIUM CHLORIDE 0.9% 100 ML BAG IV ONE (19:30)
[2025-03-27] MEDS ORDERED: IOHEXOL 350 MG/ML 100 ML VIAL IV ONE ×2 (19:30→19:59)
[2025-03-27] MEDS ORDERED: SODIUM CHLORIDE 0.9% 100 ML IV ONE (19:59)
[2025-03-27 20:54] LABS: BILIRUBIN Negative (Negative); BLOOD 1+ (Negative); CLARITY Clear (Clear); COLOR Yellow (Yellow); KETONE Negative (Negative); LEUKO ESTERASE Negative (Negative); NITRITE Negative (Negative); PH 7.5 (4.5-8.0); SPECIFIC GRAVITY >= 1.030 (1.001-1.030); UROBILINOGEN 0.2 E.U./dl (0.0-1.0)
[2025-03-27 21:04] LABS: BACTERIA TRACE; MUCOUS 1+; RBC 16-20 rbc/hpf (0-2); WBC 0-2 wbc/hpf (0-5)
[2025-03-27] MEDS ORDERED: Meclizine25 MG PO (22:47)
[2025-03-27] MEDS ORDERED: Ondansetron4 MG PO (22:47)
== END 2025-03-27 23:33 | disposition home or self-care (01) ==
LOC: ED 17:15
PROVIDERS: Student in an Organized Health Care Education/Training Program
DX: R42 Dizziness and giddiness (principal); K21.9 Gastro-esophageal reflux disease without esophagitis; F41.9 Anxiety disorder, unspecified; F17.210 Nicotine dependence, cigarettes, uncomplicated; Z88.5 Allergy status to narcotic agent; Z79.899 Other long term (current) drug therapy